=== PATIENT | female | born 1935 | race Caucasian/White ===

== ENCOUNTER 2016-06-30 07:00 | Inpatient (IN) | payer OTHER, MEDICARE ==
[~2016-06-30] VITALS: Ht 157.5 cm; Wt 77.6 kg
[~2016-06-30 07:00] MED LIST: ASPIRIN EC81 M1 PO; BENZONATATE100 MG PO; CENTRUM SILVER1 EAC3 PO; CRESTOR40 M2 PO; FOSAMAX70 M1 PO; KEFLEX500 M1 PO; LEVOTHYROXINE75 MCG PO; METOPROLOL SUCC50 M2 PO; NORVASC5 M1 PO; OMEGA-3 FISH O1 EAC4 PO; OMEPRAZOLE20 M2 PO; PERCOCET 5-3251 EACH PO; SERTRALINE HCL100 MG PO; TUSSIN100 MG/5 M PO; TYLENOL WITH C1 EACH PO; VITAMIN B-121000 MC3 PO; VITAMIN C500 M6 PO; VITAMIN D-32000 UNIT PO; ZITHROMAX Z-PA250 M1 PO
--- NOTE | 2016-07-03 11:22 | Admission Core Measures ---
Acute Coronary Syndrome Inclusion Criteria ACS Diagnosis No Inpatient Core Measures LDL Reminder: If No, please order W/I first 24hr of stay Congestive Heart Failure Inclusion Criteria CHF Diagnosis No Cerebrovascular accident Inclusion Criteria CVA/TIA Diagnosis No Inpatient Core Measures Bedside Swallow Eval Reminder: If BSE failed, place ST order Antithrombotic Reminder: Order Antithrombotic Medication by end of day 2 Antithrombotic Reminder: Document Reason Antithrombotic Not ordered by end of day 2 AFIB/Flutter Reminder: If Present, add to problem list AFIB/Flutter Reminder: Order Anticoag Medication for pts with AFIB/Flutter Atherosclerosis Reminder: If Present, add to problem list LDL Reminder: If No, please order W/I first 24hr of stay PT Order Reminder: If No, please order Venous thromboembolism Inpatient Core Measures VTE Risk Factors: Age > 40, Surgery No [facility] VTE prophylaxis d/t No contraindications No VTE Pharm Prophylaxis d/t No contraindications Inclusion Criteria - Per Current guidelines, there needs to be overlap - treatment for the first 5 days of Warfarin therapy. - Parenteral Anticoagulation (IV or SC) needs to be - given along with Warfarin therapy. VTE Diagnosis No VTE Type NONE VTE Confirmed by (Test) NONE Problem List As ranked by this Provider includes Assessment & Plan 1. AAA HOME MEDS Home Med List Alendronate Sodium 70 MG TAB 1 TAB PO QSUN BONES (Reported) Amlodipine (Norvasc 5MG Tab) 5 MG TAB 1 TAB PO DAILY BP (Reported) Ascorbic Acid (Vitamin C) 500 MG TAB 1 TAB PO BID SUPPLEMENT (Reported) Aspirin (Ecotrin) 81 MG ECT 1 TAB PO DAILY HEART (Reported) CHOLECALCIFEROL (VITAMIN D3) (Vitamin D-3) 2,000 IU SGL 1 SGL PO BID SUPPLEMENT (Reported) Cyanocobalamin (Vitamin B-12) 1,000 MCG TAB 1 TAB PO DAILY SUPPLEMENT ( Reported) Levothyroxine Sodium 0.075 MG TAB 0.075 MG PO DAILY AC THYROID (Reported) Metoprolol Succinate (Metoprolol Succinate XL) [address] 1 TAB PO DAILY BP ( Reported) Multivit-Min/FA/Lycopen/Lutein (Centrum Silver Tablet) 1 EACH TABLET 1 TAB PO DAILY SUPPLEMENT (Reported) OMEGA-3/DHA/EPA/FISH OIL ([place]-3 Fish Oil 1,000 MG Sftg) 1,000 MG SGL 1 SGL PO DAILY SUPPLEMENT (Reported) Omeprazole 20 MG ECC 1 CAP PO DAILY GI (Reported) Oxycodone HCl/Acetaminophen (Percocet 5-325 MG Tablet) 1 EACH TABLET 1-2 TAB PO Q6P PRN PAIN Rosuvastatin Calcium (Crestor) 40 MG TAB 40 MG PO DAILY CHOLESTEROL (Reported ) SERTRALINE HCL (Sertraline Hydrochloride) 100 MG TAB 1 TAB PO DAILY MENTAL HEALTH (Reported)
--- NOTE | 2016-07-03 11:38 | RADIOLOGY REPORT ---
EXAMINATION: XR ABDOMEN CLINICAL INDICATION: Intraoperative radiograph obtained to evaluate for possible the form body (needle). COMPARISON: CT of abdomen pelvis from 05/18/2016 TECHNIQUE: AP view of the abdomen. FINDINGS: Aneurysmal dilatation of the atherosclerotic aorta. Aortobiiliac stent graft is seen. There is an old clip in the midline of the pelvis. No unusual, needle like foreign body is identified within the examined abdomen or pelvis. Skin roland project over the right and left groin. The partially visualized components of the right total hip arthroplasty are intact. At the left hip, there is severe superior joint space narrowing and osteophyte formation. IMPRESSION: No needlelike metallic foreign body within the examined abdomen.
--- NOTE | 2016-07-03 12:04 | RADIOLOGY REPORT ---
EXAMINATION: XR ABDOMEN CLINICAL INDICATION: Infrarenal abdominal aorta aneurysm. Endovascular repair in operating room. COMPARISON: CT abdomen and pelvis from 05/18/2016. TECHNIQUE: Intraoperative fluoroscopic imaging support was provided to the operating room. Fluoroscopy time: 23 minutes, 15 seconds. Dose: 69.51 rad. FINDINGS: Please refer to the operative report from Dr. Perez regarding the specifics of the patient preparation, intraoperative findings and interventions performed. IMPRESSION: Fluoroscopic imaging support was provided to the operating room during aortobiiliac endovascular stenting performed by Dr Perez.
--- NOTE | 2016-07-03 14:30 | PN- Vascular Surgery ---
Subjective Subjective: The patient was seen this afternoon postoperatively. She reports her pain is under adequate control has no other complaints at the current time. She denies any chest pain, difficulty breathing, or abdominal pain. Objective Vital Signs and I&Os Vital signs: Blood pressure 110/65, pulse 76, temperature 97.8, O2 saturation 93 % on 2 L via nasal cannula I's and O's: 2200 ML's in of lactated Ringer's/EBL 350/patient is due to void Physical Exam: Gen.: Alert and in no obvious distress Skin: Warm and dry Cardiac: S1-S2 regular Pulmonary: Bilateral breath sounds equal and decreased at bases Abdomen: Soft, nondistended, nontender, bowel sounds positive. Extremities: Bilateral lower extremities are warm without calf tenderness or significant edema. Gross motor and sensory are intact. Bilateral distal pulses are palpable. Bilateral groin surgical incisions are clean, dry, and intact without signs of infection, significant hematoma, or bleeding. Assessment/Plan Assessment/Plan Assessment: 80-year-old female status post EVAR. Postoperatively the patient is progressing as expected, her incisions are dry, and her pain is under adequate control. Plan: And 2 additional hours the patient may set up his groin incisions remain intact without significant hematoma patient may ambulate and 2 hours after that. Monitor for postoperative void Continue current pain regiment GI and DVT prophylaxis Resume home medications Incentive spirometry Advance diet as tolerated Core Measures/Miscellaneous Venous Thromboembolism VTE Risk Factors: Age > 40, Obesity, Surgery VTE Contraindications: No Contraindications VTE Diagnosis: No VTE Type: NONE VTE Confirmed by (Test): NONE Beta Irina Is Beta Irina a Home Med? Yes If Yes, Was This Ordered Today? Yes Antibiotics Is Patient on Antibiotics? No
[2016-07-03 14:58] VITALS: BP 105/76
[2016-07-03 16:57] VITALS: BP 132/80
--- NOTE | 2016-07-03 17:14 | Operative Report ---
Operative/Inv Procedure Report Surgery Date: 07/03/16 Name of Procedure: EVAR, Medtronic 36 mm stent graft, supervision and interpretation of EVAR, bilateral nonselective aortic catheterization, bilateral groin cutdowns Pre-Operative Diagnosis: AAA 5.5 cm Post-Operative Diagnosis: AAA 5.5 cm Estimated Blood Loss: 200 cc Surgeon/Ironworker Apprentice Shop: NOE BECERRIL,CHIKA/ DEBORAH BECERRIL, MIREYA (Asst.) Anesthesia: general endotracheal tube Complications: None Condition: Stable to recovery Operative Indication: 80-year-old female with a history of a 5.5 cm AAA. She has been followed conservatively but recent ultrasound and CAT scan demonstrates increasing AAA diameter. Risk benefits and alternatives were discussed with the patient including rupture, , limb loss and device complication. She decide to proceed with intervention. Operative/Procedure Note Note: Patient brought to the operating room and laid supine. A timeout was held in accordance with [facility] policy. Due to the patient's history of claudications related to groin punctures and a calcified vessel decision was made to perform bilateral cutdowns. Further, due to the complexity of this case in addition to the lack of qualified resident a second attending physician was required. Simultaneous bilateral cutdowns were performed. This was done with 15 blade and Bovie electrocautery. The femoral artery was circumferentially controlled on both sides. It was prepared for endograft and the patient was bolused with heparin. 5000 units were used during the case. Bilateral punctures of both femoral arteries ensued. Bilateral 7 [place] sheaths were placed. A pigtail was placed on the left. An aortogram was then performed. Aortography demonstrates bilateral patent renal arteries. There is a large abdominal aortic aneurysm. This has a conical neck. Bilateral internal iliac arteries are patent. She has tortuous iliac vessels. A 18 [place] sheath was placed on the right and a 12 [place] sheath was placed on the left. Appropriate imaging was performed that visualized the aortic neck. An Endurant 36x14x 103 cm endovascular stent graft was then placed up the right iliac. It was deployed under direct fluoroscopy as was the suprarenal portion of the graft. During this period a wire became ensnared in the proximal portion of the graft. A Information Systems Security Specialist sheath was used to remove the distal portion of the wire. The proximal part became dislodged in the aneurysm sac. The contralateral left-sided gate was then cannulated with a Glidewire and glide catheter. A 16 x 13 x 124 contralateral left sided limb was then placed. This was followed by an ipsilateral 16 x 13 x 93 cm limb. The grafts were then dilated with a balloon. Completion aortography demonstrates an excluded aneurysm. There appears to be a small type II endoleak. There is no type I endoleak. The bilateral renal arteries are patent. The bilateral internal iliac arteries are patent. The dislodged wire is noted to be in aneurysm sac behind the graft. The deployment devices were then removed. The artery was then closed with interrupted 5-0 and 6-0 Prolene sutures. Gelfoam and thrombin were used to aid in hemostasis. The groins were closed in layers with 20 and 3-0 Vicryl sutures. Skin roland were used for the skin. Sponge management were correct. A needle was noted to be missing but a x-ray confirmed that this was not seen within the patient. The wounds were dressed with 4 x 4 and Tegaderm dressing.
--- NOTE | 2016-07-03 17:30 | NUR ---
1447- PT ARRIVED TO FLOOR VIA STRETCHER FROM PACU. REPORT REC'D FROM [facility] DIRECTOR. PT HAD ENDOVASCULAR ANEURYSM REPAIR. BILATERAL GROIN DRESSINGS C,D,I, WITH SCANT SEROSANGUINOUS DRAINAGE. + CMS TO ALL EXTREMITES. + PULSES TO ALL EXTREMITIES. PT CAN SIT AFTER 1 HR, OOB AFTER 2 HRS. CARRASCO REMOVED IN OR AT 11:30. VSS. PAIN 0/10. ORIENTED TO ROOM AND CALL LIGHT FOR ASSIST.
[2016-07-03 19:15] VITALS: BP 122/80
--- NOTE | 2016-07-03 19:45 | NUR ---
1815- PT VOIDED 200 ML.
[2016-07-03 21:15] VITALS: BP 132/84
[2016-07-04 01:00] VITALS: BP 140/74
[2016-07-04 05:12] VITALS: BP 132/70
--- NOTE | 2016-07-04 07:27 | PN- Vascular Surgery ---
Subjective Subjective: Mild to moderate pain in the groin area that is improved with Percocet. Complaints of mild to moderate sore throat. She has no abdominal pain no back pain. She does not feel lightheaded dizzy or weak. There is no nausea or vomiting. No pain in the extremities. Objective Vital Signs and I&Os Vital Signs Date Time Temp Pulse Resp B/P B/P Pulse O2 O2 Flow FiO2 Mean Ox Delivery Rate 07/04 0512 98.8 84 16 132/70 94 Nasal 1.0L Cannula 07/04 0100 98.9 76 16 140/74 94 Nasal 1.0L Cannula 07/04 0000 Nasal 1.0L Cannula 07/03 2115 98.6 59 20 132/84 96 07/03 1915 98.6 59 20 122/80 94 Nasal Cannula 07/03 1727 98 Nasal 2.0L Cannula 07/03 1657 97.5 58 20 132/80 97 Nasal Cannula 07/03 1640 Nasal 1.0L Cannula 07/03 1458 97.7 68 18 105/76 98 Nasal 2.0L Cannula Intake & Output 07/04 0800 07/04 0000 07/03 1600 07/03 0800 07/03 0000 07/02 1600 Intake Total 200 50 Output Total 500 450 Balance -300 -400 Intake, Oral 200 50 Output, Urine 500 450 Patient 171 lb Weight Physical Exam: Well-developed well-nourished no apparent distress. HEENT: Atraumatic, extraocular motion intact Neck: Supple, no lymphadenopathy Heart: Regular rate and rhythm Respiratory: No respiratory distress clear to auscultation bilateral Abdomen: Soft, nontender nondistended, no pulsatile mass Extremities: Bilateral groin incisions with small amount of serosanguineous drainage on dressing. Mild swelling noted in the lower pelvis and in the suprapubic region Extremities are warm and dry. Pulses intact distally 2+, neurovascularly intact. Feet and toes are pink and warm. Neuro: Alert and oriented x3 Psych: Mood affect normal, normal memory normal judgment. 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 She is having moderate pain that is improved with Percocet, she has yet to be out of bed except with assistance to to get to the bathroom. She complains of a mild to moderate sore throat. Plan: Out of bed Continue current pain regiment GI and DVT prophylaxis Resume home medications Incentive spirometry Advance diet as tolerated May need home services as she lives alone. Possible discharge later this afternoon although likely tomorrow Follow labs this a.m. Chloraseptic lozenges for sore throat Core Measures/Miscellaneous Venous Thromboembolism VTE Risk Factors: Age > 40, Obesity, Surgery VTE Contraindications: No Contraindications VTE Diagnosis: No VTE Type: NONE VTE Confirmed by (Test): NONE Beta Irina Is Beta Irina a Home Med? Yes If Yes, Was This Ordered Today? Yes Antibiotics Is Patient on Antibiotics? No
[2016-07-04 08:04] LABS: ABSOLUTE BASOPHIL COUNT 0 /CUMM (0.0-0.2); ABSOLUTE EOSINOPHIL COUNT 0.1 /CUMM (0.0-0.7); ABSOLUTE GRANULOCYTE CT 5.3 /CUMM (1.4-6.5); ABSOLUTE LYMPH COUNT 0.5 /CUMM (1.2-3.4); ABSOLUTE MONOCYTE COUNT 0.5 /CUMM (0.10-0.60); BASOPHIL % 0.3 % (0.0-2.0); EOSINOPHIL % 1.9 % (0-5); GRANULOCYTE % 82.1 % (42.2-75.2); HEMATOCRIT 22.7 % (37-47); MEAN CORPUSCULAR HGB 29.3 PG (27.0-31.0); MEAN CORPUSCULAR HGB CONC 33.1 G/DL (33.0-37.0); MEAN CORPUSCULAR VOLUME 88.5 FL (81.0-99.0); MEAN PLATELET VOLUME 9.5 FL (7.4-10.4); RED BLOOD CELL CT 2.56 /CUMM (4.20-5.40); WHITE BLOOD CELL COUNT 6.5 /CUMM (4.8-10.8)
[2016-07-04 08:56] LABS: PLATELET COUNT 99 /CUMM (130-400)
--- NOTE | 2016-07-04 09:34 | NUR ---
09:20- PT GOING FROM STANDING TO SITTING ON TOILET. ONCE SITTING, LEANED HEAD BACK AND BUMPED HEAD ON PIPE ON THE BACK OF THE TOILET. SMALL PINK CLOSED AREA NOTED TO POSTERIOR HEAD. ICE APPLIED. SURG RITIKA ONTIVEROS NOTIFIED. A/V/OX3. NO NEURO DEFICITS NOTED. NO NEW ORDERS.
--- NOTE | 2016-07-04 11:24 | Patient Discharge Instructions ---
Discharge Instructions General Discharge Information You were seen/treated for: Abdominal aortic aneurysm You had these procedures: Endovascular repair of abdominal aortic aneurysm Watch for these problems: Significantly increased pain, nausea, or temperature over 101 Increased redness, swelling, or drainage from incision No bath, but you may shower: Yes Other wound care: Pains incisions with Betadine and then apply a dry dressing daily Diet Continue normal diet: Yes Activity Activity Self Limited: Yes Acute Coronary Syndrome Inclusion Criteria At DC or during hospital stay patient has or had the following: ACS DIAGNOSIS No Discharge Core Measures Meds if any: Prescribed or Continued at Discharge Meds if any: NOT Prescribed or Continued at Discharge Congestive Heart Failure Inclusion Criteria At DC or during hospital stay patient has or had the following: CHF DIAGNOSIS No Discharge Core Measures Meds if any: Prescribed or Continued at Discharge Meds if any: NOT Prescribed or Continued at Discharge Cerebrovascular accident Inclusion Criteria At DC or during hospital stay patient has or had the following: CVA/TIA Diagnosis No Discharge Core Measures Meds if any: Prescribed or Continued at Discharge Meds if any: NOT Prescribed or Continued at Discharge Venous thromboembolism Inclusion Criteria VTE Diagnosis No VTE Type NONE VTE Confirmed by (Test) NONE Discharge Core Measures - Per Current guidelines, there needs to be overlap - treatment for the first 5 days of Warfarin therapy. - If discharged on Warfarin prior to 5 days of - overlap therapy, the patient will need to be - assessed for post discharge needs including - *Post discharge parental anticoagulation - *Warfarin and/or parental anticoagulation education - *Follow up date to check INR post discharge At least 5 days overlap therapy as Inpatient No Meds if any: Prescribed or Continued at Discharge Note: Overlap Therapy is Warfarin and Anticoagulant Meds if any: NOT Prescribed or Continued at Discharge
--- NOTE | 2016-07-04 11:28 | Surg Short-stay <48hrs Dis Sum ---
See Addendum Visit Information Visit Dates Admission Date: 07/03/16 Discharge Date: 07/05/16 Surgical Short Stay DC Summary Admission Diagnosis: AAA Final Diagnosis: Same Procedure(s): EVAR Summary/Significant Findings: The patient was admitted on 07/03/2016. She is brought to the operating theater where she underwent an EVAR. Postoperatively the patient progressed as expected , she worked with therapy, her pain was adequately controlled and she was discharged with uneventful hospital course Condition at Discharge: Stable Discharge Disposition: home health services Discharge instructions provided to patient/family: Yes Post discharge follow-up plan: Call the office to be seen in 2 weeks
[2016-07-04 15:18] VITALS: BP 130/90
--- NOTE | 2016-07-04 19:15 | NUR ---
RT AT BEDSIDE AT THIS TIME FOR EVAL. PT 94% ON 1L. IST DONE. PER RT PT 96% ON RA AT THIS TIME. WILL LEAVE ON RA AND RECHECK PT DENIES SOB. WILL CONTINUE TO MONITOR
--- NOTE | 2016-07-04 22:00 | NUR ---
SHIFT NOTE- PT A/O X 3, REMOVED FROM 1L O2 FROM RT AND CONTINUES TO SAT 94% ON RA, DENIES SOB. RA AT HOME, AND ? D/C FOR TOMORROW. CALL FROM DAUGHTER STATING THAT SHE WAS WORRIED ABOUT PT BEING D/C TO HOME ON O2. MEDICATED WITH PERCOCET FOR PAIN AT 1600 AND 2030 FOR C/O PAIN/BURNING SENSATION TO BILATERAL GROIN AREA AT SURGICAL SITES. DRESSINGS TO GROIN CD+I, BRUISING TO BILATERAL GROIN AND LOWER ABD/UPPER THIGHS. BED ALARM IN PLACE. ASSISTED OOB WITH 1-2 AND RW TO BATHROOM. WILL CONTINUE TO MONITOR
[2016-07-04 22:47] VITALS: BP 125/60
[2016-07-05 06:41] VITALS: BP 126/90
--- NOTE | 2016-07-05 07:21 | PN- Vascular Surgery ---
Subjective Subjective: The patient was seen this morning postoperatively day #2. She complains of some mild incisional soreness and constipation but is otherwise comfortable. She has no complaints at the current time. Objective Vital Signs and I&Os Vital Signs Date Time Temp Pulse Resp B/P B/P Pulse O2 O2 Flow FiO2 Mean Ox Delivery Rate 07/05 0641 100.0 80 18 126/90 91 Room Air 07/04 2247 97.6 79 20 125/60 94 Room Air 07/04 1600 Nasal 1.0L Cannula 07/04 1518 98.5 78 22 130/90 94 07/04 1009 83 140/84 07/04 1009 83 140/84 07/04 0800 95 Nasal 1.0L Cannula Intake & Output 07/05 0800 07/05 0000 07/04 1600 07/04 0800 07/04 0000 07/03 1600 Intake Total 820 200 50 Output Total 600 500 450 Balance 220 -300 -400 Intake, IV 100 Intake, Oral 720 200 50 Output, Urine 600 500 450 Patient 171 lb Weight Physical Exam: Gen.: Alert and in no obvious distress Skin: Warm and dry Abdomen: Soft, obese, nontender, nondistended, bowel sounds positive. Extremities: Bilateral large was warm without calf tenderness or significant edema. Gross motor and sensory are intact. Bilateral groin incisions are clean , dry, and intact without signs of infection. There is mild surrounding edema and ecchymosis as expected. Assessment/Plan Assessment/Plan Assessment: 80-year-old female status post EVAR postoperative day #2. The patient is progressing as expected and her pain is under adequate control. Plan: Dulcolax positive for a 1 as well as MiraLAX Continue current pain regiment Daily dressing change Out of bed and ambulate GI and DVT prophylaxis [facility] Follow-up morning laboratory studies and monitor H&H Probable discharge home today with physical therapy and nursing care Core Measures/Miscellaneous Venous Thromboembolism VTE Risk Factors: Age > 40, Obesity, Surgery VTE Contraindications: No Contraindications VTE Diagnosis: No VTE Type: NONE VTE Confirmed by (Test): NONE Beta Irina Is Beta Irina a Home Med? Yes If Yes, Was This Ordered Today? Yes Antibiotics Is Patient on Antibiotics? No
[2016-07-05 07:58] LABS: ABSOLUTE BASOPHIL COUNT 0 /CUMM (0.0-0.2); ABSOLUTE EOSINOPHIL COUNT 0.2 /CUMM (0.0-0.7); ABSOLUTE GRANULOCYTE CT 5.9 /CUMM (1.4-6.5); ABSOLUTE LYMPH COUNT 0.6 /CUMM (1.2-3.4); ABSOLUTE MONOCYTE COUNT 0.8 /CUMM (0.10-0.60); BASOPHIL % 0.3 % (0.0-2.0); EOSINOPHIL % 2.5 % (0-5); GRANULOCYTE % 78.5 % (42.2-75.2); HEMATOCRIT 25.2 % (37-47); MEAN CORPUSCULAR HGB 29.2 PG (27.0-31.0); MEAN CORPUSCULAR HGB CONC 32.9 G/DL (33.0-37.0); MEAN CORPUSCULAR VOLUME 88.7 FL (81.0-99.0); MEAN PLATELET VOLUME 9.4 FL (7.4-10.4); PLATELET COUNT 98 /CUMM (130-400); RBC DISTRIBUTION WIDTH 14.7 % (11.5-14.5); RED BLOOD CELL CT 2.84 /CUMM (4.20-5.40); WHITE BLOOD CELL COUNT 7.6 /CUMM (4.8-10.8)
[2016-07-05 09:27] VITALS: BP 94/50
--- NOTE | 2016-07-05 10:00 | NUR ---
NOTIFIED SURGICAL RITIKA Fierro OF BP 94/50, P 88. PER PA HOLD BP MEDS LOPRESSOR AND NORVASC AT THIS TIME.
[2016-07-05] MEDS ORDERED: RW (10:32)
[2016-07-05 12:39] VITALS: BP 108/60
== END 2016-07-05 16:20 | disposition home health service (06) | DRG 269 ==
LOC: 2NA 07-03 03:54 → SDA 07-03 03:54 → ENRESERV 07-03 13:39 → 2NA 07-03 14:29 → ENPENDDIS 07-05 14:25 → 2NA 07-05 16:20
PROVIDERS: Physician Assistant Surgical; ADMIT Surgery Vascular Surgery
PROC: 04V03DZ Restriction of Abdominal Aorta with Intraluminal Device, Percutaneous Approach (ICD-10-PCS; principal; 2016-07-03)
DX: I71.4 Abdominal aortic aneurysm, without rupture (principal); I10 Essential (primary) hypertension; E78.5 Hyperlipidemia, unspecified
CPT/HCPCS: 2NAP; 74000; 82436; 97116-GO; 97161-GP; C1725; J1644; J2405; J3490; Q9965; Q9967